=== PATIENT | female | born 1995 | race Hispanic/Latino ===

== ENCOUNTER 2023-06-15 05:38 | Inpatient (IN) | payer MEDICAID, OTHER, SELFPAY ==
[2023-06-15 05:55] VITALS: BMI 29.2
[2023-06-15 06:19] LABS: Fetal Membranes Rupture RUPTURE DETECTED (No Rupture)
[2023-06-15] MEDS: Penicillin G Potassium 5 MILL.UNITS VIAL ONE (07:00)
[2023-06-15] MEDS: Oxytocin 30 units/NS 500 ML 500 ML ONE (07:15)
[2023-06-15] MEDS ORDERED: Misoprostol 200 MCG TAB PR PRN (07:32)
[2023-06-15] MEDS ORDERED: hydrALAZINE 20 MG/ML VIAL SLOW IVP PRN ×2 (07:32→08:06)
[2023-06-15] MEDS ORDERED: Methylergonovine 0.2 MG/ML VIAL IM PRN (07:32)
[2023-06-15] MEDS ORDERED: HYDROcodone/Acetaminophen 5/325 mg Tablet PO PRN ×3 (07:32→08:06)
[2023-06-15] MEDS ORDERED: fentaNYL 50 mcg/mL 1 mL Vial SLOW IVP PRN (07:32)
[2023-06-15] MEDS ORDERED: Ibuprofen 800 MG TAB PO PRN (07:32)
[2023-06-15] MEDS ORDERED: Lidocaine 1% (PF) 30 ML VIAL SC PRN (07:32)
[2023-06-15] MEDS ORDERED: Diphenoxylate HCl/Atropine Tablet PO PRN (07:32)
[2023-06-15] MEDS ORDERED: Carboprost 250 MCG/ML AMP IM PRN (07:32)
[2023-06-15] MEDS ORDERED: Ondansetron PF 4 MG/2 ML Vial IVP PRN ×2 (07:32→08:06)
[2023-06-15] MEDS ORDERED: Promethazine HCl 25 MG/ML VIAL IM PRN (07:32)
[2023-06-15] MEDS ORDERED: Tranexamic Acid 1,000 MG/10 ML VIAL IVP PRN (07:32)
[2023-06-15] MEDS ORDERED: Penicillin G Potassium 5 MILL.UNITS in Sodium Chloride 0.9% 100 ML IVPB SCH (07:45)
[2023-06-15] MEDS ORDERED: Penicillin G 2.5 MILL.units 2.5 MILL.UNITS in Premix 1 BAG IVPB SCH (07:45)
[2023-06-15] MEDS ORDERED: Oxytocin 30 units/NS 500 ML 500 ML IV SCH (07:45)
[2023-06-15] MEDS ORDERED: Lactated Ringer's 1,000 ML IV SCH (07:45)
[2023-06-15 07:46] LABS: Hematocrit 33.3 % (34.9-44.5); Mean Corpuscular Hemoglobin 27.6 pg (27.0-33.0); Mean Corpuscular Volume 83.7 fl (81.6-98.3); Platelet Count 312 10x3/uL (150-450); RBC Distribution Width 12.9 % (11.5-14.5); Red Blood Cell (RBC) Count 3.98 10x6/uL (3.90-5.03); White Blood Cell (WBC) Count 16.1 10x3/uL (3.5-10.5)
[2023-06-15] MEDS ORDERED: Benzocaine-Menthol 82.5 ML CAN TOP PRN (08:06)
[2023-06-15] MEDS ORDERED: Milk Of Magnesia 30 ML UDCUP PO PRN (08:06)
[2023-06-15] MEDS ORDERED: diphenhydrAMINE 25 MG CAP PO PRN (08:06)
[2023-06-15] MEDS ORDERED: Lanolin Ointment 7 GM TUBE TOP PRN (08:06)
[2023-06-15] MEDS ORDERED: Bisacodyl 10 MG SUPP PR PRN (08:06)
[2023-06-15] MEDS: Acetaminophen 500 MG TAB PO PRN (08:06)
[2023-06-15 08:19] LABS: HBSAg Index 0.25 S/CO (0-0.99); Hep B Surf Ag - L&D Non-Reactive S/CO (NonReactive)
[2023-06-15 08:21] LABS: Syphilis Antibody Nonreactive (Nonreactive); Syphilis Antibody Index 0.11 S/CO (<1.00 Non-Reactive)
[2023-06-15] MEDS: Ferrous Sulfate 325 MG TAB PO SCH (12:39)
[2023-06-15] MEDS: Docusate 100 MG CAP PO SCH (12:40)
[2023-06-15] MEDS: Prenatal Vitamin 1 TAB PO SCH (12:40)
[2023-06-15] MEDS: Hepatitis B Vaccine 10 MCG/0.5 ML SYR ONE (18:49)
[2023-06-15] MEDS: Erythromycin Base 0.5% Oint 1 GM TUBE ONE (18:49)
[2023-06-15] MEDS: Phytonadione Neonatal 1 MG/0.5 ML AMP ONE (18:50)
[2023-06-15] MEDS: Ibuprofen 800 MG TAB PO SCH (18:50)
[2023-06-16] MEDS: Boostrix 0.5 ML (Tdap) VIAL (>/=7 yrs of age) IM ONE (07:03)
[2023-06-17 08:45] VITALS: BP 114/74; TEMP 98.1
== END 2023-06-17 12:30 | disposition home or self-care (01) | DRG 807 ==
LOC: CSHLD/OP 05:38 → CSHLD 07:10 → CSHPP 10:50
PROVIDERS: ADMIT Family Medicine; ATTEND Family Medicine
PROC: 10E0XZZ Delivery of Products of Conception, External Approach (ICD-10-PCS; principal; 2023-06-15)
DX: O42.02 Full-term premature rupture of membranes, onset of labor within 24 hours of rupture (principal); Z37.0 Single live birth; Z3A.38 38 weeks gestation of pregnancy; O99.824 Streptococcus B carrier state complicating childbirth; O62.3 Precipitate labor
CPT/HCPCS: 36415; 84112; 85027; 86780; 86850; 86900; 86901; 87340; 99285; J2540; J2590